=== PATIENT | female | born 2005 | race African-American/Black ===

== ENCOUNTER → 2025-03-18 14:24 | Outpatient (REF) | payer OTHER, SELFPAY ==
--- NOTE | 2025-03-18 14:38 | ECG_ITS ---
Test Reason : R94.31 Blood Pressure : */* mmHG Vent. Rate : 88 BPM Atrial Rate : 88 BPM P-R Int : 150 ms QRS Dur : 82 ms QT Int : 346 ms P-R-T Axes : 68 80 17 degrees QTcB Int : 418 ms Normal sinus rhythm Normal ECG No previous ECGs available Referred By: Lorena Kolb Electronically Signed By: INOCENTE NICE
--- OUTSIDE RECORDS SUMMARY | 2025-03-18 15:58 | XMS_ITS | Encounter Summary ---
Author Organization [facility] Address [address] [place] [id number] Phone Care Team Providers Care Block Piler Name Role Phone Lorena Kolb MD Primary Care Provider [phone] Encounter Details Date Type Department Care Team (Late st Contact Info) Description 03/09/2013 Documentation EM Family Medicine [address] [place], [place] [id number] Family Medicine, Physician [address], [place] [id number] Social History Tobacco Use Types Packs/Day Years Used Date Smoking Tobacco: Never Assessed Comments Unknown Sex and Gender Information Value Date Recorded Sex Assigned at Female 04/16/2024 9:26 AM EDT Legal Sex Female 4:55 PM EDT Gender Identity Female 07/04/2020 8:03 AM EDT Sexual Orientation Straight 04/16/2024 9: 26 AM EDT documented as of this encounter Plan of Treatment Upcoming Encounters Date Type Department Care Team (Late st Contact Info) Description 04/22/2025 10:15 AM EDT Office Visit [facility] [place] [address] [place] [address] Lorena Kolb MD [address] [place] [address] documented as of this encounter Visit Diagnoses Not on filedocumented in this encounter Care Teams Block Piler Relationship Specialty Start Date End Date Lorena Kolb MD [address] [place] [address] PCP - General 06/24/17 documented as of this encounter
--- OUTSIDE RECORDS SUMMARY | 2025-03-18 15:58 | XMS_ITS | Clinical Summary ---
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 90 tablet 2 12/30/19 23 Active desogestrel-et hinyl estradiol (Apri) 0.15-30 MG-MCG per tablet Take 1 tablet by mouth daily. Active hydrOXYzine 25 MG tabletIndicati ons:Anxiety and depression Take 1/2 to 1 tablet 1 hour before bedtime as needed for sleep/anxiety . Do not drive while taking. 30 tablet 03/18/20 25 Active Drysol 20 % external solution APPLY TO AREAS OF EXCESSIVE SWEATING (IE ARMPITS) AT BEDTIME NIGHTLY 10/02/20 23 025 Discontinued(Th erapy completed) hydrocortisone 2.5 % cream APPLY TO AFFECTED AREAS ON THE ARMPITS TWICE DAILY FOR 1 WEEK ON, 1 WEEK OFF, REPEAT NEEDED. 09/14/20 23 025 Discontinued(Th erapy completed) desogestrel-et hinyl estradiol (Apri) 0.15-30 MG-MCG per tabletIndicati ons:Irregular menses TAKE 1 TABLET BY MOUTH EVERY DAY 84 tablet 2 07/09/20 24 025 Discontinued Apri 0.15-30 MG-MCG per tabletIndicati ons:Irregular menses TAKE 1 TABLET BY MOUTH EVERY DAY 84 tablet 2 03/15/20 25 025 Discontinued(Du plicate order) Active Problems Problem Noted Date Diagnosed Date Hypercholesteremia 03/18/2025 Assessment & Plan (03/18/2025 11:09 AM EDT): Found last April and needed repeat test but wasn't able to. So will recheck today Large breasts 04/16/2024 Assessment & Plan (04/16/2024 9:25 AM EDT): See hpi but would like to have consult about breast reduction Nevus 02/22/2022 Assessment & Plan (04/16/2024 9:08 AM EDT): Has gone to derm twice; no concerns per patient; will follow up in a year Assessment & Plan (03/24/2023 8:21 AM EDT): Mom has derm that she will make an appointment with to have them follow her mole; she hasn't gone yet Assessment & Plan (02/22/2022 9:01 AM EDT): Handout given to mom to make derm appointment for nevus on back Anxiety and depression 04/09/2020 Overview (06/28/2022): 2nd evaluation appointment 01/05 Assessment & Plan (03/18/2025 11:10 AM EDT): Had treated her in the past with sertraline and then fluoxetine and is off both now. Says never felt great on either one but wants to consider treatment again, so will refer to [facility] psychiatry Assessment & Plan (04/16/2024 9:24 AM EDT): States doing well off of medication Assessment & Plan (01/24/2024 9:52 AM EDT): Patient with anxious worried thoughts, irritability, and low mood, on the waiting list at [facility], will benefit from bridge to correction therapy. Strengths include being a good student, having a long time job, and close family relationships. PLAN: Follow up with [facility] if needed in the future Patient goal is to learn coping skills and decrease overall anxiety by self report. Behavioral Recommendations: Express thoughts, feelings, and concerns when worried Spend time with friends and doing things that you enjoy c. Practice slowing down and being mindful during interactions with others d. Continue with good self care including sleep, eating, and exercise Assessment & Plan (10/13/2023 9:37 AM EST): Phq9 and GAD7 show uncontrolled symptoms; however reports significant side effects on Sertraline, so has only been taking 100 mg qod for about a month; had been off of it however for a few months prior to that, and didn't feel worse per patient. She does not want to start anything else right now. She is following along with Laurie here and continues to see her-has an appointment in a month. So will cut the 100 mg tabs in 1/2 and take 50 mg qod instead for 1-2 weeks depending on how she feels. To call if any issues with the taper. I assume she will do fine because she had stopped cold turkey over the summer, but don't want to do that necessarily again. Advised to monitor her symptoms once she stops the med altogether, and if she determines she needs to try something different, will make appointment with a psychiatrist. She has now tried and failed Fluoxetine and Sertraline. So she should see a specialist to determine if she would do better with something else, perhaps even something as a mood stabilizer. She appeared to understand and will talk with Laurie if she decides to. Advised to bring any unused meds to the pharmacy for proper disposal. Assessment & Plan (09/22/2023 10:13 AM EST): Patient with anxious worried thoughts, irritability, and low mood, on the waiting list at [facility], will benefit from bridge to tattoo artist therapy. Strengths include being a good student, having a long time job, and close family relationships. PLAN: Follow up with [facility] 4 weeks Patient goal is to learn coping skills and decrease overall anxiety by self report. Behavioral Recommendations: Express thoughts, feelings, and concerns when worried Spend time with friends and doing things that you enjoy c. Practice slowing down and being mindful during interactions with others d. Continue with good self care including sleep, eating, and exercise Assessment & Plan (08/30/2023 10:14 AM EDT): Patient with anxious worried thoughts, irritability, and low mood, on the waiting list at [facility], will benefit from bridge to correction therapy. Strengths include being a good student, having a long time job, and close family relationships. PLAN: Follow up with [facility] 3 weeks Patient goal is to learn coping skills and decrease overall anxiety by self report. Behavioral Recommendations: Express thoughts, feelings, and concerns when worried Spend time with friends and doing things that you enjoy c. Practice slowing down and being mindful during interactions with others d. Continue with good self care including sleep, eating, and exercise Assessment & Plan (04/20/2023 9:49 AM EDT): Patient with anxious worried thoughts, irritability, and low mood, on the waiting list at [facility], will benefit from bridge to correction therapy. Strengths include being a good student, having a long time job, and close family relationships. PLAN: Follow up with [facility] 3 weeks Patient goal is to learn coping skills and decrease overall anxiety by self report. Behavioral Recommendations: Express thoughts, feelings, and concerns when worried Spend time with friends and doing things that you enjoy c. Practice slowing down and being mindful during interactions with others d. Continue with good self care including sleep, eating, and exercise Assessment & Plan (03/25/2023 2:31 PM EDT): Patient with anxious worried thoughts, irritability, and low mood, on the waiting list at [facility], will benefit from bridge to correction therapy. Strengths include being a good student, having a long time job, and close family relationships. PLAN: Follow up with [facility] 4 weeks Patient goal is to learn coping skills and decrease overall anxiety by self report. Behavioral Recommendations: Express thoughts, feelings, and concerns when worried Spend time with friends and doing things that you enjoy c. Practice slowing down and being mindful during interactions with others d. Continue with good self care including sleep, eating, and exercise Assessment & Plan (03/24/2023 8:34 AM EDT): Doing well on Sertraline 100 mg daily. Wants to continue same; follow up in 3-6 months. Follow up with therapist as well. Assessment & Plan (02/23/2023 11:11 AM EDT): Patient with anxious worried thoughts, irritability, and low mood, on the waiting list at [facility], will benefit from bridge to correction therapy. Strengths include being a good student, having a long time job, and close family relationships. PLAN: Follow up with [facility] 4 weeks Patient goal is to learn coping skills and decrease overall anxiety by self report. Behavioral Recommendations: Express thoughts, feelings, and concerns when worried Spend time with friends and doing things that you enjoy c. Practice slowing down and being mindful during interactions with others d. Continue with good self care including sleep, eating, and exercise Assessment & Plan (01/07/2023 11:27 AM EST): Patient with anxious worried thoughts, irritability, and low mood, on the waiting list at [facility], will benefit from bridge to correction therapy. Strengths include being a good student, having a long time job, and close family relationships. PLAN: 1. Follow up with [facility] 3 weeks 2. Patient goal is to learn coping skills and decrease overall anxiety by self report. 3. Behavioral Recommendations: a. Express thoughts, feelings, and concerns when worried b. Spend time with friends and doing things that you enjoy c. Practice slowing down and being mindful during interactions with others d. Continue with good self care including sleep, eating, and exercise Assessment & Plan (12/30/2022 10:02 AM EST): Doing well on Sertraline 100 mg daily; does not want to increase to decrease; gad7 and phq9 stable. Continue with therapist. Follow up with me at [facility] in March unless any concerns sooner. Assessment & Plan (12/17/2022 9:08 AM EST): Patient with anxious worried thoughts, irritability, and low mood, on the waiting list at [facility], will benefit from bridge to tattoo artist therapy. Strengths include being a good student, having a long time job, and close family relationships. PLAN: 1. Follow up with [facility] 4 weeks 2. Patient goal is to learn coping skills and decrease overall anxiety by self report. 3. Behavioral Recommendations: a. Express thoughts, feelings, and concerns when worried b. Spend time with friends and doing things that you enjoy c. Practice slowing down and being mindful during interactions with others Assessment & Plan (11/23/2022 9:59 AM EST): Patient with anxious worried thoughts, irritability, and low mood, on the waiting list at [facility], will benefit from bridge to correction therapy. Strengths include being a good student, having a long time job, and close family relationships. PLAN: 1. Follow up with [facility] 4 weeks 2. Patient goal is to learn coping skills and decrease overall anxiety by self report. 3. Behavioral Recommendations: a. Express thoughts, feelings, and concerns when worried b. Spend time with friends and doing things that you enjoy c. Practice slowing down and being mindful during interactions with others Assessment & Plan (10/22/2022 9:13 AM EST): Patient with anxious worried thoughts, irritability, and low mood, on the waiting list at [facility], will benefit from bridge to tattoo artist therapy. Strengths include being a good student, having a long time job, and close family relationships. PLAN: 1. Follow up with [facility] 4 weeks 2. Patient goal is to learn coping skills and decrease overall anxiety by self report. 3. Behavioral Recommendations: a. Express thoughts, feelings, and concerns when worried b. Spend time with friends and doing things that you enjoy c. Practice slowing down and being mindful during interactions with others Assessment & Plan (10/01/2022 11:14 AM EST): Patient with anxious worried thoughts, irritability, and low mood, on the waiting list at [facility], will benefit from bridge to tattoo artist therapy. Strengths include being a good student, having a long time job, and close family relationships. PLAN: 1. Follow up with [facility] 3 weeks 2. Patient goal is to learn coping skills and decrease overall anxiety by self report. 3. Behavioral Recommendations: a. Express thoughts, feelings, and concerns when worried b. Spend time with friends and doing things that you enjoy c. Practice slowing down and being mindful during interactions with others Assessment & Plan (09/01/2022 9:25 AM EDT): Patient with anxious worried thoughts, irritability, and low mood, on the waiting list at [facility], will benefit from bridge to tattoo artist therapy. Strengths include being a good student, having a long time job, and close family relationships. PLAN: 1. Follow up with [facility] 4 weeks 2. Patient goal is to learn coping skills and decrease overall anxiety by self report. 3. Behavioral Recommendations: a. Express thoughts, feelings, and concerns when worried b. Spend time with friends and doing things that you enjoy c. Practice slowing down and being mindful during interactions with others Assessment & Plan (08/31/2022 4:50 PM EDT): Doing well on Sertraline 100 mg daily; phq9 and GAD7 stable; continue same dosing and follow up in 3 months; sooner if any issues; continue with therapist-seems to be going well for her Assessment & Plan (08/13/2022 6:02 PM EDT): Patient with anxious worried thoughts, irritability, and low mood, on the waiting list at [facility], will benefit from bridge to tattoo artist therapy. Strengths include being a good student, having a long time job, and close family relationships. PLAN: 1. Follow up with [facility] 3 weeks 2. Patient goal is to learn coping skills and decrease overall anxiety by self report. 3. Behavioral Recommendations: a. Express thoughts, feelings, and concerns when worried b. Spend time with friends and doing things that you enjoy c. Practice slowing down and being mindful during interactions with others Assessment & Plan (07/20/2022 5:42 PM EDT): Patient with anxious worried thoughts, irritability, and low mood, on the waiting list at [facility], will benefit from bridge to correction therapy. Strengths include being a good student, having a long time job, and close family relationships. PLAN: 1. Follow up with [facility] 3 weeks month 2. Patient goal is to learn coping skills and decrease overall anxiety by self report. 3. Behavioral Recommendations: a. Express thoughts, feelings, and concerns when worried b. Spend time with friends and doing things that you enjoy c. Practice slowing down and being mindful during interactions with others Assessment & Plan (06/28/2022 9:31 AM EDT): Patient with anxious worried thoughts, irritability, and low mood, on the waiting list at [facility], will benefit from bridge to correction therapy. Strengths include being a good student, having a long time job, and close family relationships. PLAN: 1. Follow up with [facility] 1 month 2. Patient goal is to learn coping skills and decrease overall anxiety by self report. 3. Behavioral Recommendations: a. Express thoughts, feelings, and concerns when worried b. Spend time with friends and doing things that you enjoy c. Practice slowing down and being mindful during interactions with others Assessment & Plan (02/22/2022 9:02 AM EDT): Doing well on Sertraline 100 mg daily ; continue same; follow up in 3-6 months Assessment & Plan (12/10/2021 8:25 AM EST): GAD7 is still quite abnormal but she says she is feeling a little bit better than before on the Sertraline 50 mg daily; but still not great; so as per [facility] consult last time, will increase to 100 mg daily of Sertraline to optimize treatment; plans to make appointment with therapist here for assistance because there's such a long wait list at [facility]. Advised to call [facility] and tell them that they also will want to see psychiatry for sure. I am prescribing for her but I really need her to see someone there. Asked her to also speak with the therapist here about that as well to advocate for her. Suggested the calm marc and also using an marc to track her mood (as suggested by [facility] psychiatrist). Was supposed to be seen in a month for her physical but apparently they're going to [place], so they will rebook it next available. To call sooner if any problems with the higher dose Assessment & Plan (10/06/2021 9:39 AM EST): GAD7 much worse today; reports not doing well; angry all the time; very resistant to therapy; but stressed how important it is to have a therapist; certainly a better situation to then be able to get a psychiatrist which I also feel she needs; she was seen by [facility] last year; I have placed a call into [facility] again today for an over the phone child psych consult to try to wean down fluoxetine and start a new med (either sertraline or escitalopram); handout given to search for a therapist and/or psychiatrist; mom will make some calls; follow up with me in November at least for a med check Assessment & Plan (05/04/2021 10:01 AM EDT): Doing ok for the most part; gad7 improved somewhat; some nausea when she takes it--so advised taking with dinner every night and let me know if that doesn't work; overall less angry , which is great; feeling a little blah but hopefully that will improve as time goes on; wants to maintain the same so continue Fluoxetine 40 mg daily; recheck 2 months Assessment & Plan (04/07/2021 8:56 AM EDT): Taking Fluoxetine 40 mg daily and unfortunately is not working great for her right now; GAD7 increased significantly; long discussion with Jaqueline about the options--increase dose of fluoxetine or taper and start a new one; she prefers to just stay where she is with the current medication since likely its just that the last 2 weeks have been overwhelmingly stressful; doesn't feel unsafe; denies needing crisis at all; just feels stressed; still denies wanting to see a therapist; reviewed reasons why I think it would be helpful; encouraged to continue to exercise several times a week; will follow up in a month instead of 2 to check in and see how she is; but asked her to call me [facility] if any worsening or changes her mind about the plan; for now will continue fluoxetine daily Assessment & Plan (03/10/2021 8:30 AM EDT): Has worked up to the higher dose over the last month--now on Fluoxetine 40 mg daily for about a week and doing well; no side effects; anger is improving and no longer having those possible motor tics; she reports not actually feeling any different but when asked GAD7 questions, her result is much lower than last result a month ago; so will continue the same for now: Fluoxetine 40 mg daily and recheck in a month but will let me know sooner if anything changes; still prefers not to see a therapist Assessment & Plan (02/09/2021 8:32 AM EDT): GAD7 still quite abnormal; having a lot of anxiety; mom feels like she's doing a little better though; so will increase dose (both mom and patient ok with this plan) to 30 mg for 2 weeks, then 40 mg for 2 weeks, then see her in follow up; to call sooner if any side effects; strongly encouraged to consider therapist; doesn't want to right now; packet from [facility] on anxiety given for strategies; encouraged her to continue exercising like she is; follow up in 4 weeks Assessment & Plan (12/16/2020 11:53 AM EST): Did well with initiation of SSRI Fluoxetine about 2 1/2 weeks ago; started at 10 mg every other day, now on 10 mg everyday; no side effects noted; so will increase to more therapeutic dose of 20 mg daily; will start out by taking 2 of the 10s, then pick out hand the rx for the 20 mg dose; mom and patient ok with this plan; will follow up in a month with me but both mom and patient know to call if any side effects or problems at all; declines further therapist right now but will consider in future Assessment & Plan (11/27/2020 10:10 AM EST): Seen by psychiatrist Dr. Vences through [facility] , felt had both Anxiety and Depression (not bipolar disorder); Jaqueline feels the anxiety is more intense for her; he recommended either fluoxetine or sertraline; mom and patient agree with starting; will start with fluoxetine After counseling the patient/family on risks and benefits of SSRIs, we will start Fluoxetine at a trial dose of 5 mg/day for a week, then I will have them called by Jessica Alcantara in a week, and if they are tolerating the test dose well, without any significant side effects, we will double the dose to 10 mg/day. The family knows to call immediately for significant side effects, especially significant agitation or any new thoughts about self-harm. F/u with me in person in 2 weeks. Irregular menses 09/24/2019 Assessment & Plan (03/18/2025 11:10 AM EDT): Included list of linker up in the AVS for her to make an appointment Assessment & Plan (04/16/2024 9:07 AM EDT): On ocps; doing well; encouraged to make appointment with veneer trimmer Assessment & Plan (10/13/2023 9:37 AM EST): Doing well with her ocps; wants to continue; rx renewed; advised to make appointment with veneer trimmer-handout given for suggestions Assessment & Plan (03/24/2023 8:19 AM EDT): Has appointment in April with obgyn; still taking ocps and doing ok with that Assessment & Plan (12/30/2022 10:02 AM EST): Continues on ocps; doing well; encouraged to start seeing linker up when turns 18 Assessment & Plan (10/06/2021 9:35 AM EST): Doing well on ocps Assessment & Plan (11/27/2020 10:09 AM EST): Seems to be doing ok on ocps so far; refilled Rx; continue same; follow up if any worries Assessment & Plan (09/24/2019 9:00 AM EST): Will call if wants to start ocps; sister uses them; wants to consider Seasonal allergic rhinitis due to pollen 018 Assessment & Plan (04/16/2024 9:07 AM EDT): Uses claritin as needed Assessment & Plan (03/24/2023 8:20 AM EDT): Using loratadine as needed Assessment & Plan (10/06/2021 9:35 AM EST): Uses loratadine as needed Assessment & Plan (03/10/2021 8:23 AM EDT): Doesn't take claritin anymore; not bothering her Assessment & Plan (09/20/2019 2:39 PM EST): Takes loratadine for allergies Resolved Problems Problem Noted Date Diagnosed Date Resolved Date Generalized anxiety disorder 09/20/2019 02/22/2022 Assessment & Plan (09/26/2020 12:25 PM EST): Having some difficulties lately; mom worried about bipolar disorder; not continuing with her therapist-didn't like her; so I left a message for jasmina to call me back to discuss diagnostic evaluation (with possible medication recs) and help with finding a new therapist Assessment & Plan (09/24/2019 9:00 AM EST): Reviewed symptoms that she's having; discussed options/family /patient are open to seeing behavioral therapist; discussed suggestions of how to do this/handout/etc; to call if having trouble Encounters Date Type Department Care Team Description 03/18/2025 9:30 AM EDT Office Visit [facility] [address] [place] [address] Lorena Kolb MD Tachycardia (Primary Dx); Feeling anxious; Abnormal ECG; Hypercholesteremia; Anxiety and depression; Irregular menses 03/18/2025 Telephone [facility] [address] [place] [address] Bianka Yu [facility] 03/15/2025 Refill [facility] [address] [place] [address] Lorena Kolb MD Irregular menses from Last 3 Months Immunizations Immunization Administration Dates Next Due DTaP / Hep B / IPV 02/07/2006,2005, 005 DTaP 5 11/10/2009,03/24/2007 H1N1 11/10/2009 HPV Vaccine 9 Valent 09/18/2018,06/10/2017 Hep A, ped/adol 11/11/2008,03/24/2007 Hep B, ped/adol 2005 Hib (HbOC) 2005,2005 Hib (PRP-T) 10/13/2006,02/07/2006 IPV 11/10/2009 Influenza Split 09/15/2012 Influenza, injectable, quadr ivalent, preservative free 09/18/2018 Influenza, injectable, trivalent 009,11/11/2008,08/29/2007,11/11,10/13/2006 MMR 11/10/2009,07/12/2006 Meningococcal B Trumenba 04/16/2024,03/24/2023 Meningococcal Conj (Menactra) MCV4P 02/22/2022,0 06/10/2017 Pneumococcal Conjugate 10/13/2006,2005,2005,09/14 Tdap 06/10/2017 Varicella 11/10/2009,07/12/2006 Family History Medical History Relation Name Comments Cerebral palsy Brother 2 Jordin Olguin Schizophrenia Maternal Grandmother Anxiety disorder Mother Jessica Olguin Depression Mother Jessica Olguin Hyperlipidemia Mother Jessica lOguin Stroke Mother Jessica Olguin Anxiety disorder Mother's Sister Relation Name Status Comments Brother 1 Alexey Phipps Alive Brother: CP,Ast hma,Sz, Alive and well Brother 2 Jordin Olguin Alive Maternal Grandfather Materna l grandfather: Myocardial infarction Maternal Grandmother Mother Jessica Olguin Alive Mother: Aller gic to PCN Mother's Sister Sister Sirena Olguin Alive Sister: Alive a nd well Social History Tobacco Use Types Packs/Day Years Used Date Smoking Tobacco: Never Alcohol Use Standard Drinks/Week Comments Yes 0 (1 standard drink = 0.6 oz pur e alcohol) occasionally Hunger/Food Answer Date Recorded In the last 12 months, did y ou or your family ever eat less than you felt you should because there wasn't enough money for food? No 04/16/2024 Stable Housing Answer Date Recorded Are you worried that in the next 2 months you may not have stable housing? No 04/16/2024 Transportation Concerns Answer Date Rec orded In the last 12 months, have you or your family ever had to go without healthcare because you didn't have a way to get there? No 04/16/2024 Hazards in Home Answer Date Recorded Think about the place you li ve. Do you have problems with any of the following? Pests (mice or roaches), mold, no/not working smoke detectors, water leaks, no window guards. No 2023 Financing Utilities Answer Date Recorde d In the last 12 months, has t he electric, gas, oil, or water company threatened to shut off your services in your home? No 04/16/2024 Safety at Home Answer Date Recorded Are you or your family worried about feeling saf e in your home? No 04/16/2024 Outside Support Answer Date Recorded Do you feel that you need mo re support from other people or programs to help you care for yourself or your family? No 04/16/2024 Understanding Health Concerns Answer Da te Recorded Do you need help understandi ng your or your child's healthcare needs (diagnosis, medications, plan, etc.)? No 04/16/2024 Financing Health Concerns Answer Date R ecorded In the last 12 months, was t here a time when your child needed to see a doctor or get medications or supplies but could not because of cost? No 04/16/2024 Missing School or Work Answer Date Elliott rded Did you or your child miss s chool or work because of a health problem that could have been avoided? No 04/16/2024 Child Education Answer Date Recorded Do you have concerns about y our/your child's learning or behavior in school, preschool, or daycare? No 04/16/2024 Comments No Sex and Gender Information Value Date Recorded Sex Assigned at Female 04/16/2024 9:26 AM EDT Legal Sex Female 4:55 PM EDT Gender Identity Female 07/04/2020 8:03 AM EDT Sexual Orientation Straight 04/16/2024 9: 26 AM EDT Last Filed Vital Signs Vital Sign Reading Time Taken Comments Blood Pressure 132/78 03/18/2025 9:31 AM EDT Pulse 87 03/18/2025 9:31 AM EDT Temperature 36.1 ??C (96.9 ??F) 03/18/2025 9:31 AM ED T Respiratory Rate 20 09/20/2019 2:13 PM EST Oxygen Saturation - - Inhaled Oxygen Concentration - - Weight 112 kg (247 lb) 03/18/2025 9:31 AM EDT Height 180.3 cm (5' 11 ) 04/16/2024 8:53 AM EDT Body Mass Index 34.45 04/16/2024 8:53 AM EDT Plan of Treatment Upcoming Encounters Date Type Department Care Team (Late st Contact Info) Description 04/22/2025 10:15 AM EDT Office Visit [facility] [address] [place] [address] Lorena Kolb MD [address] [place], [place] [id number] Health Maintenance Due Date Last Done Comments Influenza Vaccines (#1) 2024 09/18/20 18, 09/15/2012, 11/10/2009, Additional history exists COVID-19 Vaccine (3 2023-2 5 season) 2024 08/24/2021, 07/31/2021 Chlamydia and Gonorrhea Screening 11/14/2024 04/16/2024, 03/24/2023, 02/22/2022 DTaP,Tdap,and Td Vaccines (7 - Td or Tdap) 06/10/2027 06/10/2017, 11/10/2009, 03/24/2007, Additional history exists Hepatitis B Vaccines Completed 02/07/2006, 2005, 2005, Additional history exists HIB Vaccines Completed 10/13/2006, 01/13, 2005, Additional history exists Pneumococcal Vaccine Completed 10/13/2006, 02/07/2006, 2005, Additional history exists Hepatitis A Vaccines Completed 11/11/2008, 03/24/20 07 IPV Vaccines Completed 11/10/2009, 01/13, 2005, Additional history exists MMR Vaccines Completed 11/10/2009, 07/12/2006 Varicella Vaccines Completed 11/10/2009, 07/12/2006 HPV Vaccines Completed 09/18/2018, 06/10/2017 Meningococcal Vaccine Completed 02/22/2022, 017 HIV Screening Completed 04/16/2024 Hepatitis C Screening Completed 04/16/2024 Men B Vaccine Completed 04/16/2024, 03/24/2023 Procedures * Due to [place] law, this organization might not be sharing sensitive test results. Procedure Name Priority Date/Time Associated Diagnosis Comments CHLAMYDIA AND GONORRHEA, AMPLIFIED Routine 04/16/2024 9:36 AM EDT Encounter for screening examination for chlamydial infection HEPATITIS C ANTIBODY WITH REFLEX TO HCV, RNA, QUANT, RT PCR Routine 04/16/2024 9:30 AM EDT Tattoos Routine screening for STI (sexually transmitted infection) from Last 3 Months or Most Recently Relevant to Health Maintenance Results * Due to [place] law, this organization might not be sharing sensitive test results. * Chlamydia and Gonorrhoea, Amplified (Urine) (04/16/2024 9:36 AM EDT) C trach KAY Negative Negative [facility] N gonorrhoeae KAY Negative Negative [facility] Urine (Urine, Random (not clean void)) 04/16/2024 9:36 AM EDT 04/16/2024 Comment:UR Narrative [facility] - 04/20/2024 9:08 AM EDT Performed at: ??01 - [facility] [address], [address], [place], [place] ??[id number] Firearms Inspector: Gentry Reeves MD, Phone: ??[phone] us Lorena Kolb MD LAB MICROBIOLOGY - GENERAL ORD ERABLES Final Result [facility] [address] [place] [address] * Hepatitis C antibody (04/16/2024 9:30 AM EDT) HCV Ab Non Reactive Non Reactive [facility] Blood 04/16/2024 9:30 AM EDT 04/16/2024 Narrative [facility] - 04/17/2024 10:08 AM EDT Performed at: ??01 - [facility] [address], [address], [place], [place] ??[id number] Firearms Inspector: Gentry Reeves MD, Phone: ??[phone] us Lorena Kolb MD LAB BLOOD ORDERABLES Final Res ult [facility] [address] [place] [address] from Last 3 Months or Most Recently Relevant to Health Maintenance Insurance [facility] Address: [facility] [address] [place] [address] [facility] NON PCC [facility] Care Teams Heel Washer Stringing Machine Operator Relationship Specialty Start Date End Date Lorena Kolb MD [address] [place] [address] [place] [address] PCP - General 06/24/17
--- OUTSIDE RECORDS SUMMARY | 2025-03-18 15:58 | XMS_ITS | Encounter Summary ---
Author Organization [facility] Address [address] [place] [address] Phone Care Team Providers Care Assembly Hand Name Role Phone Lorena Kolb MD Primary Care Provider [phone] Encounter Details Date Type Department Care Team (Late st Contact Info) Description 04/27/2016 Documentation [facility] [place] [facility] Family Medicine [address] [place], [place] [id number] Family Medicine, Physician [address] [place], [place] [address] Social History Tobacco Use Types Packs/Day Years [...] Description 04/22/2025 10:15 AM EDT Office Visit [facility] [place] [address] [place] [address] Lorena Kolb MD [address] [place] [address] documented as of this encounter Visit Diagnoses Not on filedocumented in this encounter Care Teams Assembly Hand Relationship Specialty Start Date End Date Lorena Kolb MD [address] [place] [address] PCP - General 06/24/17 documented as of this encounter
--- OUTSIDE RECORDS SUMMARY | 2025-03-18 15:58 | XMS_ITS | Encounter Summary ---
Author Organization [facility] Address [address] [place] [address] Phone Care Team Providers Care Aircraft Captain Name Role Phone Lorena Kolb MD Primary Care Provider [phone] Encounter Details Date Type Department Care Team (Late st Contact Info) Description 03/14/2015 Documentation [facility] [address] [place], [place] [phone] Family Medicine, Physician [address] [place], [place] [address] Social History Tobacco Use Types Packs/Day Years [...] Description 04/22/2025 10:15 AM EDT Office Visit [facility] [place] [address] [place] [address] Lorena Kolb MD [address] [place] [address] documented as of this encounter Visit Diagnoses Not on filedocumented in this encounter Care Teams Aircraft Captain Relationship Specialty Start Date End Date Lorena Kolb MD [address] [place] [address] PCP - General 06/24/17 documented as of this encounter
--- OUTSIDE RECORDS SUMMARY | 2025-03-18 15:58 | XMS_ITS | Encounter Summary ---
Author Organization [facility] Address [address] [place] [address] Phone Care Team Providers Care Lumber Kiln Operator Name Role Phone Lorena Kolb MD Primary Care Provider [phone] Reason for Visit * Reason Comments Med Refill Encounter Details Date Type Department Care Team (Late st Contact Info) Description 10/14/2019 Refill [facility] - [address] [address] Lorena Kolb MD [address] [place] [address] Other disorders of diminished melanin formation Social History Tobacco Use Types Packs/Day Years Used Date Smoking Tobacco: Never Assessed Hunger/Food Answer Date Recorded No 12/02/2018 Stable Housing Answer Date Recorded 0 12/02/2018 Transportation Concerns Answer Date Rec orded No 12/02/2018 Hazards in Home Answer Date Recorded No 12/02/2018 Financing Utilities Answer Date Recorde d Yes 12/02/2018 Safety at Home Answer Date Recorded No 12/02/2018 Outside Support Answer Date Recorded No 12/02/2018 Understanding Health Concerns Answer Da te Recorded No 12/02/2018 Financing Health Concerns Answer Date R ecorded No 12/02/2018 Missing School or Work Answer Date Elliott rded No 12/02/2018 Comments Unknown Sex and Gender Information Value Date Recorded Sex Assigned at Female 04/16/2024 9:26 AM EDT Legal Sex Female 4:55 PM EDT Gender Identity Female 07/04/2020 8:03 AM EDT Sexual Orientation Straight 04/16/2024 9: 26 AM EDT documented as of this encounter Miscellaneous Notes * Telephone Encounter - Lorena Kolb MD - 10/15/2019 12:53 PM EST This was only meant to be a one month treatment per last derm note; so if she feels she still needstreatment, then she needs to follow up with either derm here or outpatient derm; please let her know; thanks * Telephone Encounter - Do Jones LPN - 10/15/2019 12:17 PM EST Refill request for doxycycline. Last PE 09/20/19/KAVYA documented in this encounter Plan of Treatment Upcoming Encounters Date Type Department Care Team (Late st Contact Info) Description 04/22/2025 10:15 AM EDT Office [facility] [place] [address] [place] [address] Lorena Kolb MD [address] [place] [address] documented as of this encounter Visit Diagnoses Diagnosis Other disorders of diminished melanin formation documented in this encounter Care Teams Lumber Kiln Operator Relationship Specialty Start Date End Date Lorena Kolb MD [address] [place] [address] PCP - General 06/24/17 documented as of this encounter
--- OUTSIDE RECORDS SUMMARY | 2025-03-18 15:58 | XMS_ITS | Encounter Summary ---
Author Organization [facility] Address [address] [place] [address] Phone Care Team Providers Care Ship'S Carpenter Name Role Phone Lorena Kolb MD Primary Care Provider [phone] Encounter Details Date Type Department Care Team (Late st Contact Info) Description 02/27/2014 Documentation [facility] [address] [place], [place] [phone] Family Medicine, Physician [address] [place], [place] [address] Social History Tobacco Use Types Packs/Day Years [...] Description 04/22/2025 10:15 AM EDT Office Visit [facility] [place] [address] [place] [address] Lorena Kolb MD [address] [place] [address] documented as of this encounter Visit Diagnoses Not on filedocumented in this encounter Care Teams Ship'S Carpenter Relationship Specialty Start Date End Date Lorena Kolb MD [address] [place] [address] PCP - General 06/24/17 documented as of this encounter
--- OUTSIDE RECORDS SUMMARY | 2025-03-18 15:58 | XMS_ITS | Encounter Summary ---
Author Organization [facility] Address [address] [place] [address] Phone Care Team Providers Care Comptroller Name Role Phone Lorena Kolb MD Primary Care Provider [phone] Encounter Details Date Type Department Care Team (Late st Contact Info) Description 10/26/2010 Documentation [facility] [address] [place], [place] [phone] Family Medicine, Physician [address] [place], [place] [address] Social History Tobacco Use Types Packs/Day Years [...] Description 04/22/2025 10:15 AM EDT Office Visit [facility] [place] [address] [place] [address] Lorena Kolb MD [address] [place] [address] documented as of this encounter Visit Diagnoses Not on filedocumented in this encounter Care Teams Comptroller Relationship Specialty Start Date End Date Lorena Kolb MD [address] [place] [address] PCP - General 06/24/17 documented as of this encounter
--- OUTSIDE RECORDS SUMMARY | 2025-03-18 15:58 | XMS_ITS | Encounter Summary ---
Author Organization [facility] Address [address] [place] [address] Phone Care Team Providers Care Subgrade Roller Operator Name Role Phone Lorena Kolb MD Primary Care Provider [phone] Encounter Details Date Type Department Care Team (Late st Contact Info) Description 06/30/2017 Conversion Encounter [facility] [address] [place] [address] Social History Tobacco Use Types Packs/Day Years [...] Description 04/22/2025 10:15 AM EDT Office Visit [facility] [address] [place] [address] Lorena Kolb MD [address] [place] [address] documented as of this encounter Visit Diagnoses Not on filedocumented in this encounter Care Teams Subgrade Roller Operator Relationship Specialty Start Date End Date Lorena Kolb MD [address] [place] [address] PCP - General 06/24/17 documented as of this encounter
--- OUTSIDE RECORDS SUMMARY | 2025-03-18 15:58 | XMS_ITS | Encounter Summary ---
Author Organization [facility] Address [address] [place] [address] Phone Care Team Providers Care Blacksmith Supervisor Name Role Phone Lorena Kolb MD Primary Care Provider [phone] Reason for Visit * Reason Onset Date Comments [facility] 03/18/2025 Encounter Details Date Type Department Care Team (Late st Contact Info) Description 03/18/2025 Telephone [facility] [place] [address] [place] [address] [place] [address] [place] [address] [facility] Urgent Care Social History Tobacco Use Types Packs/Day Years [...] encounter Miscellaneous Notes * Telephone Encounter - Bianka Yu [place] - 03/18/2025 9:58 AM EDT Patient here today for an UC f/u. Went to [facility] in [place] on 03/15/25. Requested a copy of their office notes to be faxed to [facility] documented in this encounter Plan of Treatment Upcoming Encounters Date Type Department Care Team (Late st Contact Info) Description 04/22/2025 10:15 AM EDT Office Visit [facility] - [address] [place] [address] Lorena Kolb MD 150 [facility] [place] [address] documented as of this encounter Visit Diagnoses Not on filedocumented in this encounter Care Teams Blacksmith Supervisor Relationship Specialty Start Date End Date Lorena Kolb MD 150 [facility] [place] [address] PCP - General 06/24/17 documented as of this encounter
--- OUTSIDE RECORDS SUMMARY | 2025-03-18 15:58 | XMS_ITS | Encounter Summary ---
Author Organization [facility] Address [address] [place] [address] Phone Care Team Providers Care Corn Shredder Name Role Phone Lorena Kolb MD Primary Care Provider [phone] Reason for Visit * Reason Comments Med Refill Encounter Details Date Type Department Care Team (Late st Contact Info) Description 12/06/2021 Refill [facility] [place] [address] [place] [address] Lorena Kolb MD [address] [place] [address] Irregular menses Social History Tobacco Use Types Packs/Day Years Used Date Smoking Tobacco: Never Assessed Hunger/Food Answer Date Recorded In the last 12 months, did y ou or your family ever eat less than you felt you should because there wasn't enough money for food? No 09/25/2020 Stable Housing Answer Date Recorded Are you worried that in the next 2 months you may not have stable housing? No 09/25/2020 Transportation Concerns Answer Date Rec orded In the last 12 months, have you or your family ever had to go without healthcare because you didn't have a way to get there? No 09/25/2020 Hazards in Home Answer Date Recorded Think about the place you li ve. Do you have problems with any of the following? Pests (mice or roaches), mold, no/not working smoke detectors, water leaks, no window guards. No 2019 Financing Utilities Answer Date Recorde d In the last 12 months, has t he electric, gas, oil, or water company threatened to shut off your services in your home? No 09/25/2020 Safety at Home Answer Date Recorded Are you or your family worried about feeling saf e in your home? No 09/25/2020 Outside Support Answer Date Recorded Do you feel that you need mo re support from other people or programs to help you care for yourself or your family? No 09/25/2020 Understanding Health Concerns Answer Da te Recorded Do you need help understandi ng your or your child's healthcare needs (diagnosis, medications, plan, etc.)? No 09/25/2020 Financing Health Concerns Answer Date R ecorded In the last 12 months, was t here a time when your child needed to see a doctor or get medications or supplies but could not because of cost? No 09/25/2020 Missing School or Work Answer Date Elliott rded Did you or your child miss s chool or work because of a health problem that could have been avoided? No 09/25/2020 Comments No Sex and Gender Information Value Date Recorded Sex Assigned at Female 04/16/2024 9:26 AM EDT Legal Sex Female 4:55 PM EDT Gender Identity Female 07/04/2020 8:03 AM EDT Sexual Orientation Straight 04/16/2024 9: 26 AM EDT documented as of this encounter Miscellaneous Notes * Telephone Encounter - Genna Stockton LPN - 12/07/2021 11:08 AM EST Pharm requesting refill of Apri. Last PE 09/25/20 documented in this encounter Plan of Treatment Upcoming Encounters Date Type Department Care Team (Late st Contact Info) Description 04/22/2025 10:15 AM EDT Office Visit [facility] [place] [address] [place] [address] Lorena Kolb MD 150 [place] [address] documented as of this encounter Visit Diagnoses Diagnosis Irregular menses Irregular menstrual cycle documented in this encounter Care Teams Corn Shredder Relationship Specialty Start Date End Date Lorena Kolb MD 150 [facility] [place] [address] PCP - General 06/24/17 documented as of this encounter
--- OUTSIDE RECORDS SUMMARY | 2025-03-18 15:58 | XMS_ITS | Encounter Summary ---
Author Organization [facility] Address [address] [place] [address] Phone Care Team Providers Care Cpr Instructor Name Role Phone Lorena Kolb MD Primary Care Provider [phone] Encounter Details Date Type Department Care Team (Late st Contact Info) Description 06/20/2017 Documentation [facility] [place] [address] [place], [place] [phone] Family Medicine, Physician [address] [place], [place] [address] Social History Tobacco Use Types Packs/Day Years [...] Description 04/22/2025 10:15 AM EDT Office Visit [facility] [place] [address] [place] [address] Lorena Kolb MD [address] [place] [address] documented as of this encounter Visit Diagnoses Not on filedocumented in this encounter Care Teams Cpr Instructor Relationship Specialty Start Date End Date Lorena Kolb MD [address] [place] [address] PCP - General 06/24/17 documented as of this encounter
--- OUTSIDE RECORDS SUMMARY | 2025-03-18 15:58 | XMS_ITS | Encounter Summary ---
Author Organization [facility] Address [address] [place] [address] Phone Care Team Providers Care Print Washer Name Role Phone Lorena Kolb MD Primary Care Provider [phone] Encounter Details Date Type Department Care Team (Late st Contact Info) Description 09/18/2012 Documentation [facility] Family [facility] [address] [place], [place] [address] Family Medicine, Physician [address] [place], [place] [address] Social History Tobacco Use Types Packs/Day Years [...] Description 04/22/2025 10:15 AM EDT Office Visit [facility] [place] [address] [place] [address] Lorena Kolb MD [address] [place] [address] documented as of this encounter Visit Diagnoses Not on filedocumented in this encounter Care Teams Print Washer Relationship Specialty Start Date End Date Lorena Kolb MD [address] [place] [address] PCP - General 06/24/17 documented as of this encounter
--- OUTSIDE RECORDS SUMMARY | 2025-03-18 15:58 | XMS_ITS | Encounter Summary ---
Author Organization [facility] Address [address] [place] [address] Phone Care Team Providers Care Manager Outpatient Name Role Phone Lorena Kolb MD Primary Care Provider [phone] Reason for Visit * Reason Comments Med Refill Encounter Details Date Type Department Care Team ([facility] st Contact Info) Description 12/28/2023 Refill [facility] [address] [place] [address] Lorena Kolb MD [address] [place] [address] Anxiety and depression Social History Tobacco Use Types Packs/Day Years Used Date Smoking Tobacco: Never Alcohol Use Standard Drinks/Week Comments Yes 0 (1 standard drink = 0.6 oz pur e alcohol) occasionally Hunger/Food Answer Date Recorded In the last 12 months, did y ou or your family ever eat less than you felt you should because there wasn't enough money for food? No 03/24/2023 Stable Housing Answer Date Recorded Are you worried that in the next 2 months you may not have stable housing? No 03/24/2023 Transportation Concerns Answer Date Rec orded In the last 12 months, have you or your family ever had to go without healthcare because you didn't have a way to get there? No 03/24/2023 Hazards in Home Answer Date Recorded Think about the place you li ve. Do you have problems with any of the following? Pests (mice or roaches), mold, no/not working smoke detectors, water leaks, no window guards. No 2022 Financing Utilities Answer Date Recorde d In the last 12 months, has t he electric, gas, oil, or water company threatened to shut off your services in your home? No 03/24/2023 Safety at Home Answer Date Recorded Are you or your family worried about feeling saf e in your home? No 03/24/2023 Outside Support Answer Date Recorded Do you feel that you need mo re support from other people or programs to help you care for yourself or your family? No 03/24/2023 Understanding Health Concerns Answer Da te Recorded Do you need help understandi ng your or your child's healthcare needs (diagnosis, medications, plan, etc.)? No 03/24/2023 Financing Health Concerns Answer Date R ecorded In the last 12 months, was t here a time when your child needed to see a doctor or get medications or supplies but could not because of cost? No 03/24/2023 Missing School or Work Answer Date Elliott rded Did you or your child miss s chool or work because of a health problem that could have been avoided? No 03/24/2023 Comments No Sex and Gender Information Value Date Recorded Sex Assigned at Female 04/16/2024 9:26 AM EDT Legal Sex Female 4:55 PM EDT Gender Identity Female 07/04/2020 8:03 AM EDT Sexual Orientation Straight 04/16/2024 9: 26 AM EDT documented as of this encounter Miscellaneous Notes * Telephone Encounter - Kenyatta Beyer LPN - 12/28/2023 11:43 AM EST Noted. Thank you. * Telephone Encounter - Amber Montoya MD - 12/28/2023 11:37 AM EST Stopped in September * Telephone Encounter - Amber Montoya MD - 12/28/2023 11:[address] Kolb had her taper off the medication in September so does not need refill. If having issues should set up visit to come back and see either Laurie or her PCP * Telephone Encounter - Kenyatta Beyer LPN - 12/28/2023 8:16 AM EST AW PCP LM: Pharm requesting refill for sertraline 100mg. Last PE 03/24/23. Last med check 10/13/23. documented in this encounter Plan of Treatment Upcoming Encounters Date Type Department Care Team (Late st Contact Info) Description 04/22/2025 10:15 AM EDT Office Visit [facility] [place] [address] [place] [address] Lorena Kolb MD [address] [place] [address] documented as of this encounter Visit Diagnoses Diagnosis Anxiety and depression documented in this encounter Care Teams Manager Outpatient Relationship Specialty Start Date End Date Lorena Kolb MD [address] [place] [address] PCP - General 06/24/17 documented as of this encounter
--- OUTSIDE RECORDS SUMMARY | 2025-03-18 15:58 | XMS_ITS | Encounter Summary ---
Author Organization [facility] Address [address] [place] [address] Phone Care Team Providers Care Tool Maker Name Role Phone Lorena Kolb MD Primary Care Provider [phone] Reason for Visit * Reason Onset Date Comments Med Refill 11/20/2022 Encounter Details Date Type Department Care Team (Late st Contact Info) Description 11/20/2022 [facility] [address] [place] [address] Juliet Velázquez MD [address] [place] [address] Adjustment disorder with mixed anxiety and depressed mood Social History Tobacco Use Types Packs/Day Years Used Date Smoking Tobacco: Never Alcohol Use Standard Drinks/Week Comments Never 0 (1 standard drink = 0.6 oz pur e alcohol) Hunger/Food Answer Date Recorded In the last [...] Description 04/22/2025 10:15 AM EDT [facility] [address] [place] [address] Lorena Kolb MD [address] [place] [address] documented as of this encounter Visit Diagnoses Diagnosis Adjustment disorder with mixed anxiety and depressed mood documented in this encounter Care Teams Tool Maker Relationship Specialty Start Date End Date Lorena Kolb MD [address] [place] [address] PCP - General 06/24/17 documented as of this encounter
--- OUTSIDE RECORDS SUMMARY | 2025-03-18 15:58 | XMS_ITS | Encounter Summary ---
Author Organization [facility] Address [address] [place] [address] Phone Care Team Providers Care [employer] Products Glazer Name Role Phone Lorena Kolb MD Primary Care Provider [phone] Encounter Details Date Type Department Care Team (Late st Contact Info) Description 09/18/2012 Documentation [facility] [address] [place], [place] [id number] Family Medicine, Physician [address] [place], [place] [address] Social History Tobacco Use Types Packs/Day Years [...] 04/22/2025 10:15 AM EDT Office Visit [facility] [place] [address] [place] [address] Lorena Kolb MD [address] [place] [address] documented as of this encounter Visit Diagnoses Not on filedocumented in this encounter Care Teams [employer] Glazer Relationship Specialty Start Date End Date Lorena Kolb MD [address] [place] [address] PCP - General 06/24/17 documented as of this encounter
--- OUTSIDE RECORDS SUMMARY | 2025-03-18 15:58 | XMS_ITS | Encounter Summary ---
Author Organization [facility] Address [address] [place] [address] Phone Care Team Providers Care Datapower Developer Name Role Phone Lorena Kolb MD Primary Care Provider [phone] Encounter Details Date Type Department Care Team (Late st Contact Info) Description 04/26/2016 Documentation [facility] [facility] [address] [place], [place] [phone] Family Medicine, Physician [address] [place], [place] [address] Social History Tobacco Use Types Packs/Day Years [...] Description 04/22/2025 10:15 AM EDT Office Visit [facility] [place] [address] [place] [address] Lorena Kolb MD [address] [place] [address] documented as of this encounter Visit Diagnoses Not on filedocumented in this encounter Care Teams Datapower Developer Relationship Specialty Start Date End Date Lorena Kolb MD [address] [place] [address] PCP - General 06/24/17 documented as of this encounter
--- OUTSIDE RECORDS SUMMARY | 2025-03-18 15:58 | XMS_ITS | Encounter Summary ---
Author Organization [facility] Address [address] [place] [address] Phone Care Team Providers Care Telephone Solicitor Supervisor Name Role Phone Lorena Kolb MD Primary Care Provider [phone] Reason for Referral * Consult and return to PCP (Routine) - Work in Progress Specialty Diagnoses / Procedures Referred By Nitesh olivas Referred To Contact Psychiatry Diagnoses Anxiety and depression oLrena Kolb MD [address] [place] [address] Phone: tel: fax: [facility] Electronic Referrals [address] [place] [address] Phone: tel: Referral ID Status Reason Start Date Expiration Date Visits Requested Visits Authorized [id number] Work in Progress Specialty Services Required 03/18/2025 09/14/2025 1 1 Scheduling Instructions Purpose of Visit: adult psychiatry Primary question(s) for the specialist: treatment for anxiety and depression To date, the workup has been: failed a couple of ssris For the initial assessment my preference would be: Next available attending in adult psychiatry * Diagnostic Lab (Routine) - Authorized Specialty Diagnoses / Procedures Referred By Nitesh olivas Referred To Contact Diagnoses Abnormal ECG Procedures ECG 12 lead Lorena Kolb MD [address] [place] [address] Phone: tel: fax: [facility] EKG [address] [place] [address] Phone: tel: fax: Referral ID Status Reason Start Date Expiration Date V isits Requested Visits Authorized [id number] Authorized 03/18/2025 09/14/2025 1 1 Reason for Visit * Reason Comments Chest Pain Encounter Details Date Type Department Care Team (Late st Contact Info) Description 03/18/2025 9:30 AM EDT Office Visit [facility] [place] [address] [place] [address] Lorena Kolb MD [address] [place] [address] Tachycardia (Primary Dx); Feeling anxious; Abnormal ECG; Hypercholesteremia; Anxiety and depression; Irregular menses Social History Tobacco Use Types [...] AM EDT documented as of this encounter Last Filed Vital Signs Vital Sign Reading Time Taken Comments Blood Pressure 132/78 03/18/2025 9:31 AM EDT Pulse 87 03/18/2025 9:31 AM EDT Temperature 36.1 ??C (96.9 ??F) 03/18/2025 9:31 AM ED T Respiratory Rate - - Oxygen Saturation - - Inhaled Oxygen Concentration - - Weight 112 kg (247 lb) 03/18/2025 9:31 AM EDT Height - - Body Mass Index 34.45 04/16/2024 8:53 AM EDT documented in this encounter Patient Instructions * Patient Instructions* Lorena Kolb MD - 03/18/2025 9:30 AM EDT [facility] Gynecology [facility] Obstetrics [place] [] [facility] [phone] [] [facility] [phone] [] [facility] [phone] [place] [] [facility] [phone] [] [facility] [phone] [] Pedi/Adolescent JUNIOR LINUX ADMINISTRATOR [phone] [] [facility] [phone] [] [facility] [phone]; [] [facility] [phone] [] Juliana/Jeff[facility]Irma [phone] [] [facility] [phone] [] [facility] [phone] [place] [] [facility] [phone] [place] [] [facility] [phone] [place] [] [facility] [phone] [place] [] [facility] [phone] [place] [] [facility] [phone] [] [facility] [phone] [] [facility] [phone] [place] [] Pedi/Adolescent JUNIOR LINUX ADMINISTRATOR [phone] [place] [] [facility] [phone] [place] [] [facility] [place] [phone] [facility] [] [facility]) [phone] [] [facility]) [phone] documented in this encounter Progress Notes * Lorena Kolb MD - 03/18/2025 9:30 AM EDT Chief Complaint Chest Pain Jaqueline is a 19yr female who presents to the office alone History of Present Illness Patient went to , [facility] in [place], on Tuesday (March 15) for chest pain. Brought a copy of EKG Was told to stop drinking caffine and talk to PCP re: anxiety medication As above Started Tuesday night-couldn't fall asleep-thought having a panic attack Eventually fell asleep still bothering her but just felt a pressure on her chest Heart randomly raced So Tuesday night still bothering her Went to urgent care--thought was fine; said to stop caffeine and probably go back on anxiety meds but fine otherwise and to follow up here Still just feels very anxious, sweaty; heart is not randomly beating out of her chest anymore but just a constant state of anxiety Finals week right now starting today Meds: ocps and claritin as needed; nothing otc Caffeine-usually 3 shots espresso in her latte and a soda daily; trying to cut back on it Not a good eater otherwise Scared her though so trying to cut back on caffeine and trying to eat healthier But got a bad headache because of cutting out caffeine so fast Has been trying to drink more water Medications: Marked as Taking Medication Sig ??? desogestrel-ethinyl estradiol (Apri) 0.15-30 MG-MCG per tablet Take 1 tablet by mouth daily. ??? loratadine 10 MG tablet Take 1 tablet (10 mg total) by mouth once daily. Allergies: No Known Allergies Vital Signs: BP (!) 132/78 (BP Location: Right arm, Patient Position: Sitting) Pulse 87 Temp 96.9 ??F (36.1 ??C) (Tympanic) Wt 247 lb (112 kg) BMI 34.45 kg/m?? Physical Exam Constitutional: Appearance: She is obese. Neck: Thyroid: No thyroid mass or thyromegaly. Cardiovascular: Rate and Rhythm: Tachycardia present. Heart sounds: No murmur heard. Musculoskeletal: Cervical back: Neck supple. Neurological: Mental Status: She is alert. Psychiatric: Comments: A bit quick with her words/but totally appropriate but frequently remarking that she feels anxious and a little hot Labs No results found for any visits on 03/18/25. Assessment and Plan Diagnoses and all orders for this visit: Tachycardia - CBC - T4, free - TSH Feeling anxious Abnormal ECG - ECG 12 lead Hypercholesteremia - Non-HDL Cholesterol Non-Fasting Profile Anxiety and depression - Ambulatory referral to Psychiatry - hydrOXYzine 25 MG tablet; Take 1/2 to 1 tablet 1 hour before bedtime as needed for sleep/anxiety.Do not drive while taking. Irregular menses Hypercholesteremia Found last April and needed repeat test but wasn't able to. So will recheck today Anxiety and depression Had treated her in the past with sertraline and then fluoxetine and is off both now. Says never felt great on either one but wants to consider treatment again, so will refer to [facility] psychiatry Irregular menses Included list of pesticide chemist in the AVS for her to make an appointment Seen at urgent care Tuesday night for several days of feeling anxious and chest discomfort/palpitations Did an ECG that the computer reading is abnormal but she was told it was fine- just tachycardic Has had quite a bit of caffeine intake and certainly suffers with anxiety and is not treated So the plan: 1. To go to [facility] after her exam at 3 pm today to walk in for a repeat ECG;Rx given to her 2. Get blood work now to r/o thyroid disease, anemia, and follow up on her cholesterol that was high last summer 3. Avoid/significantly decrease caffeine intake. Increase water intake. Try to make healthier food choices 4. Use hydroxyzine at night to help with sleep but referral made to psychiatry to consider treatment again 5. Follow up based on above results. Has well visit in a month - Outside notes (such as: ER visit, Hospital discharge, Subspecialist or school notes) were reviewed for this visit. documented in this encounter Miscellaneous Notes * Assessment & Plan Note - Lorena Kolb MD - 03/18/2025 11:10 AM EDT Associated Problem(s): Irregular menses Included list of pesticide chemist in the AVS for her to make an appointment * Assessment & Plan Note - Lorena Kolb MD - 03/18/2025 11:10 AM EDT Associated Problem(s): Anxiety and depression Had treated her in the past with sertraline and then fluoxetine and is off both now. Says never felt great on either one but wants to consider treatment again, so will refer to [facility] psychiatry * Assessment & Plan Note - Lorena Kolb MD - 03/18/2025 11:09 AM EDT Associated Problem(s): Hypercholesteremia Found last April and needed repeat test but wasn't able to. So will recheck today documented in this encounter Plan of Treatment Upcoming Encounters Date Type Department Care Team (Late st Contact Info) Description 04/22/2025 10:15 AM EDT Office Visit [facility] [place] [address] [place] [address] Lorena Kolb MD [address] [place] [address] Pending Results Name Type Priority Associated Diagnoses Date /Time CBC Lab Routine Tachycardia 03/18/2025 10:08 AM EDT T4, free Lab Routine Tachycardia 03/18/2025 10:08 AM EDT TSH Lab Routine Tachycardia 03/18/2025 10:08 AM EDT Non-HDL Cholesterol Non-Fasting Profile Lab Routine Hypercholesteremia 03/18/2025 10:08 AM EDT Scheduled Orders Name Type Priority Associated Diagnoses Orde r Schedule ECG 12 lead ECG Routine Abnormal ECG Ordered: 03/18/2025 Scheduled Referrals Name Type Priority Associated Diagnoses Order Schedule Ambulatory referral to Psychiatry Outpatient Referral Routine Anxiety and depression Ordered: 03/18/2025 documented as of this encounter Visit Diagnoses Diagnosis Tachycardia- Primary Unspecified tachycardia Feeling anxious Anxiety state, unspecified Abnormal ECG Nonspecific abnormal electrocardiogram (ECG) (EKG) Hypercholesteremia Pure hypercholesterolemia Anxiety and depression Irregular menses Irregular menstrual cycle documented in this encounter Care Teams Telephone Solicitor Supervisor Relationship Specialty Start Date End Date Lorena Kolb MD [address] [place] [address] PCP - General 06/24/17 documented as of this encounter
--- OUTSIDE RECORDS SUMMARY | 2025-03-18 15:58 | XMS_ITS | Encounter Summary ---
Author Organization [facility] Address [address] [place] [address] Phone Care Team Providers Care Director Of Food And Nutrition Name Role Phone Lorena Kolb MD Primary Care Provider [phone] Reason for Visit * Reason Comments Med Refill Encounter Details Date Type Department Care Team (Late st Contact Info) Description 03/15/2025 Refill [facility] [place] [address] [place] [address] Lorena Kolb MD [address] [place] [address] Irregular menses Social History Tobacco Use Types [...] encounter Miscellaneous Notes * Telephone Encounter - Liz Mayer MD - 03/15/2025 12:47 PM EDT Rx reviewed and e-prescribed to pharmacy. * Telephone Encounter - Yossi Fontenot RN - 03/15/2025 9:45 AM EDT Pharm requesting med refill of OCP. Last PE 04/16/24 documented in this encounter Plan of Treatment Upcoming Encounters Date Type Department Care Team (Late st Contact Info) Description 04/22/2025 10:15 AM EDT Office Visit [facility] [place] [address] [place] [address] Lorena Kolb MD [address] [place] [address] documented as of this encounter Visit Diagnoses Diagnosis Irregular menses Irregular menstrual cycle documented in this encounter Care Teams Director Of Food And Nutrition Relationship Specialty Start Date End Date Lorena Kolb MD [address] [place] [address] PCP - General 06/24/17 documented as of this encounter
--- OUTSIDE RECORDS SUMMARY | 2025-03-18 15:58 | XMS_ITS | Encounter Summary ---
Author Organization [facility] Address [address] [place] [address] Phone Care Team Providers Care Visual Merchandising Coordinator Name Role Phone Lorena Kolb MD Primary Care Provider [phone] Encounter Details Date Type Department Care Team (Late st Contact Info) Description 06/14/2017 Documentation [facility] [place] [address] [place], [place] [id number] Family Medicine, Physician [address] [place], [place] [address] Social History Tobacco Use Types Packs/Day Years [...] Description 04/22/2025 10:15 AM EDT Office Visit [facility] [place] [address] [place] [address] Lorena Kolb MD [address] [place] [address] documented as of this encounter Visit Diagnoses Not on filedocumented in this encounter Care Teams Visual Merchandising Coordinator Relationship Specialty Start Date End Date Lorena Kolb MD [address] [place] [address] PCP - General 06/24/17 documented as of this encounter
== END ==
LOC: HO.CARD 14:24
PROVIDERS: PCP Specialist; Visit Provider Specialist
DX: R94.31 Abnormal electrocardiogram [ECG] [EKG] (principal)
CPT/HCPCS: 93005

== ENCOUNTER → 2025-03-18 14:38 | Outpatient (BNV) | payer OTHER, SELFPAY | PROVIDERS: PCP Specialist; Visit Provider Internal Medicine | DX: R94.31 Abnormal electrocardiogram [ECG] [EKG] (principal) | CPT/HCPCS: 93010 ==